=== PATIENT | female | born 1995 | race Caucasian/White ===

== ENCOUNTER 2019-10-09 13:11 | Inpatient (IN) | payer MEDICAID ==
[~2019-10-09] VITALS: Ht 157.5 cm; Wt 66.7 kg
[~2019-10-09 13:11] MED LIST: LIDOCAINE HCL 2%/EPINEPHRINE 1:100,000 20 ML VIAL INFIL ONE
[2019-10-09] MEDS ORDERED: DEXT 5%/LR + PITOCIN 20UNITS/L 1,000 ML IV SCH ×2 (15:27→20:00)
[2019-10-09] MEDS: LACTATED RINGERS 1,000 ML IV SCH ×2 (15:27→18:04)
[2019-10-09] MEDS ORDERED: MISOPROSTOL 200MCG TABLET VG SCH (15:30)
[2019-10-09] MEDS ORDERED: BUTORPHANOL TARTRATE 2 MG/ML VIAL IV PRN (15:30)
[2019-10-09] MEDS ORDERED: METHYLERGONOVINE MALEATE 0.2 MG/ML IM PRN ×2 (15:30→20:00)
[2019-10-09] MEDS ORDERED: CARBOPROST TROMETHAMINE 250 MCG/ML AMPUL IM PRN (15:30)
[2019-10-09] MEDS ORDERED: NALOXONE HCL 0.4 MG/ML 1ML VIAL IM PRN (15:30)
[2019-10-09] MEDS ORDERED: LIDOCAINE HCL 1% 20ML VIAL (Pyxis) INJ INFIL SCH (15:30)
[2019-10-09 15:45] LABS: BASOPHILS % 0.3 % (0.0-2.0); EOSINOPHILS % 0.2 % (0.0-5.0); HEMATOCRIT. 35.4 % (36.0-48.0); LYMPHOCYTES % 20.6 % (20.0-50.0); MEAN CORPUSCULAR HEMOGLOBIN 29.3 pg (28.0-32.0); MEAN CORPUSCULAR VOLUME 86.1 fL (81.0-99.0); MEAN PLATELET VOLUME 9.6 fl (7.4-10.4); MONOCYTES % 8.1 % (2.0-8.0); NEUTROPHILS % 70.8 % (40.0-76.0); PLATELET 292 x1000/uL (130-400); RED BLOOD CELL COUNT 4.11 mill/uL (4.2-5.4); RED CELL DISTRIBUTION WIDTH 13.8 % (11.6-14.6)
[2019-10-09 15:55] LABS: PARTIAL THROMBOPLASTIN TIME 27.3 sec (23.4-31.0); PROTHROMBIN TIME 10.2 sec (9.6-11.0)
[2019-10-09 15:55] LABS: CLARITY URINE CLOUDY (CLEAR); COLOR URINE YELLOW (YELLOW); KETONES URINE NEGATIVE (NEGATIVE); LEUKOCYTE ESTERASE URINE NEGATIVE (NEGATIVE); NITRITE URINE NEGATIVE (NEGATIVE); OCCULT BLOOD URINE 1+ (NEGATIVE); PH URINE 6.5 (4.5-8.0); PROTEIN URINE 1+ (NEGATIVE); SPECIFIC GRAVITY URINE 1.007 (1.005-1.030); UROBILINOGEN URINE 0.2 E.U./dL (0.2-1.0)
[2019-10-09] MEDS ORDERED: SODIUM CHLORIDE 0.9% IRRIG SOLUTION 1000ML IR ONE (16:00)
[2019-10-09 16:29] LABS: *COCAINE SCREEN URINE NEGATIVE (NEGATIVE)
[2019-10-09 16:30] LABS: *AMPHETAMINES SCREEN URINE NEGATIVE (NEGATIVE); *BARBITURATES SCREEN URINE NEGATIVE (NEGATIVE); CANNABINOID URINE SCREEN NEGATIVE (NEGATIVE); METHADONE URINE SCREEN NEGATIVE (NEGATIVE); OPIATES URINE SCREEN NEGATIVE (NEGATIVE); PHENCYCLIDINE URINE SCREEN NEGATIVE (NEGATIVE)
[2019-10-09 16:31] LABS: HEPATITIS B SURFACE ANTIGEN NEGATIVE
[2019-10-09 16:31] LABS: *BENZODIAZEPINES SCREEN URINE NEGATIVE (NEGATIVE)
[2019-10-09] MEDS ORDERED: ROPIVACAINE HCL/PF EPIDURAL 200 ML EPI ONE (17:30)
[2019-10-09] MEDS ORDERED: ROPIVACAINE HCL/PF EPIDURAL 200 ML EPI SCH (18:00)
[2019-10-09] MEDS ORDERED: FENTANYL CITRATE/PF 50MCG/ML 2ML VIAL ONE (18:00)
[2019-10-09] MEDS ORDERED: BISACODYL 10MG SUPP PR PRN (20:00)
[2019-10-09] MEDS ORDERED: BENZOCAINE/LANOLIN/ALOE VERA SPRAY TOP PRN (20:00)
[2019-10-09] MEDS ORDERED: ACETAMINOPHEN WITH CODEINE 300/30MG TABLET PO PRN (20:00)
[2019-10-09] MEDS ORDERED: LANOLIN OINT 7GM TUBE TOP PRN (20:00)
[2019-10-09] MEDS ORDERED: GLYCERIN/WITCH HAZEL LEAF MEDICATED PAD TOP PRN (20:00)
[2019-10-09] MEDS ORDERED: IBUPROFEN 400MG TABLET PO PRN (20:00)
[2019-10-09] MEDS ORDERED: HEMORRHOIDAL SUPP PR PRN (20:00)
[2019-10-09] MEDS ORDERED: DIPHENHYDRAMINE 25MG CAPSULE PO PRN (20:00)
[2019-10-09 21:20] VITALS: BP 122/97
[2019-10-09 22:00] VITALS: BP 110/63
[2019-10-09] MEDS: IBUPROFEN 800MG TABLET PO PRN (23:12)
[2019-10-10 05:52] LABS: BASOPHILS % 0.2 % (0.0-2.0); HEMATOCRIT. 33.5 % (36.0-48.0); HEMOGLOBIN. 11.1 g/dL (12.0-16.0); LYMPHOCYTES % 13.9 % (20.0-50.0); MEAN CORPUSCULAR HEMOGLOBIN 28.8 pg (28.0-32.0); MEAN CORPUSCULAR VOLUME 86.5 fL (81.0-99.0); MEAN PLATELET VOLUME 9.1 fl (7.4-10.4); MONOCYTES % 8.9 % (2.0-8.0); PLATELET 254 x1000/uL (130-400); RED BLOOD CELL COUNT 3.87 mill/uL (4.2-5.4)
[2019-10-10 08:00] VITALS: BP 95/45
[2019-10-10] MEDS: IBUPROFEN 800MG TABLET PO PRN (11:47)
[2019-10-10] MEDS: PRENATAL VIT/FE FUMARATE/FA TABLET PO SCH (11:47)
[2019-10-10] MEDS: FERROUS SULFATE 325MG TABLET PO SCH (11:47)
[2019-10-10] MEDS: SIMETHICONE 80MG TABLET CHEW PO SCH ×2 (11:48→20:51)
[2019-10-10 15:31] VITALS: BP 106/53
[2019-10-10 19:30] VITALS: BP 112/68
[2019-10-10] MEDS: DOCUSATE SODIUM 100MG CAPSULE PO SCH (20:51)
[2019-10-11 04:00] VITALS: BP 104/54
[2019-10-11 08:00] VITALS: BP 115/76
[2019-10-11] MEDS: AMOXICILLIN/POTASSIUM CLAVULANATE 875/125MG TAB PO SCH ×2 (10:35→22:06)
[2019-10-11 16:18] VITALS: BP 111/68
[2019-10-11 19:30] VITALS: BP 131/78
[2019-10-11] MEDS: DOCUSATE SODIUM 100MG CAPSULE PO SCH (20:56)
[2019-10-11] MEDS: SIMETHICONE 80MG TABLET CHEW PO SCH (20:56)
[2019-10-12 04:00] VITALS: BP 119/67
[2019-10-12 06:46] LABS: BASOPHILS % 0.3 % (0.0-2.0); EOSINOPHILS % 1.6 % (0.0-5.0); HEMATOCRIT. 36.7 % (36.0-48.0); HEMOGLOBIN. 12.3 g/dL (12.0-16.0); LYMPHOCYTES % 24.8 % (20.0-50.0); MEAN CORPUSCULAR HEMOGLOBIN 29.4 pg (28.0-32.0); MEAN CORPUSCULAR VOLUME 87.5 fL (81.0-99.0); MEAN PLATELET VOLUME 8.7 fl (7.4-10.4); MONOCYTES % 9.2 % (2.0-8.0); NEUTROPHILS % 64.1 % (40.0-76.0); PLATELET 304 x1000/uL (130-400); RED CELL DISTRIBUTION WIDTH 14.5 % (11.6-14.6)
[2019-10-12 08:00] VITALS: BP 112/75
[2019-10-12] MEDS: SIMETHICONE 80MG TABLET CHEW PO SCH (08:58)
[2019-10-12] MEDS: PRENATAL VIT/FE FUMARATE/FA TABLET PO SCH (08:59)
[2019-10-12] MEDS: FERROUS SULFATE 325MG TABLET PO SCH (08:59)
[2019-10-12] MEDS: IBUPROFEN 800MG TABLET PO PRN (08:59)
[2019-10-12] MEDS: AMOXICILLIN/POTASSIUM CLAVULANATE 875/125MG TAB PO SCH (08:59)
== END 2019-10-12 11:15 | disposition home or self-care (01) | DRG 560 ==
LOC: OBSVTOIN 13:11 → 8 EST LDRP 13:11 → 8EST 21:00
PROVIDERS: ADMIT Obstetrics & Gynecology; ATTEND Obstetrics & Gynecology
PROC: 10E0XZZ Delivery of Products of Conception, External Approach (ICD-10-PCS; principal; 2019-10-09)
PROC: 0KQM0ZZ Repair Perineum Muscle, Open Approach (ICD-10-PCS; 2019-10-09)
PROC: 3E0R3BZ Introduction of Anesthetic Agent into Spinal Canal, Percutaneous Approach (ICD-10-PCS; 2019-10-09)
PROC: 00HU33Z Insertion of Infusion Device into Spinal Canal, Percutaneous Approach (ICD-10-PCS; 2019-10-09)
DX: O76 Abnormality in fetal heart rate and rhythm complicating labor and delivery (principal); O77.0 Labor and delivery complicated by meconium in amniotic fluid; O69.81X0 Labor and delivery complicated by cord around neck, without compression, not applicable or unspecified; Z3A.40 40 weeks gestation of pregnancy; Z37.0 Single live birth; O70.1 Second degree perineal laceration during delivery; O86.20 Urinary tract infection following delivery, unspecified
CPT/HCPCS: 36415; 80305; 81003; 85025; 86592; 86703; 86762; 86850; 86900; 87340; 99281; J0595; J2590; J2795; J3010; J3490; J7120